=== PATIENT | male | born 1960 | race Caucasian/White ===

== ENCOUNTER 2018-05-02 11:41 | Day surgery (SDC) | payer BC ==
[~2018-05-02] VITALS: Ht 177.8 cm; Wt 131.5 kg
[~2018-05-02 11:41] MED LIST: GLUCOSAMINE &1 EAC1 PO; MEN'S MULTI-VI1 EACH PO; MOBIC15 MG PO
[2018-05-02] MEDS ORDERED: LISINOPRIL20 MG PO (12:00)
[2018-05-02 12:14] VITALS: BP 135/87
[2018-05-02 17:20] VITALS: BP 138/79
[2018-05-02 18:22] VITALS: BP 143/85
== END 2018-05-02 18:29 | disposition home or self-care (01) ==
LOC: SDC 11:41
DX: H33.22 Serous retinal detachment, left eye (principal); E66.01 Morbid (severe) obesity due to excess calories; Z68.41 Body mass index [BMI] 40.0-44.9, adult; I10 Essential (primary) hypertension
CPT/HCPCS: J0131; J0330; J0690; J0713; J1100; J2250; J2405; J3010; J3300